=== PATIENT | female | born 1965 | race Caucasian/White ===

== ENCOUNTER 2025-05-24 12:54 | Inpatient (IN) ==
[2025-05-24] MEDS: ASPIRIN CHEW 324 MG PO STA (13:13)
--- NOTE | 2025-05-24 13:13 | Emergency Department Note ---
Impression & Plan Chest pain, Headache ED Provider Note NAME: ANN MARIE ANGELO AGE: 60 SEX: F : 1965 ARRIVES VIA: Walk-In INFORMANT: Patient, ED PROVIDER(S): Celestino Barksdale DO CHIEF COMPLAINT: Chest pain the patient HPI: Is a 60-year-old female who presented to the emergency department for an evaluation. The patient started noticing chest discomfort several weeks ago. She states is very intermittent and sharp. The patient denies having any fever. She denies having a cough. She does notice shortness of breath as well as a discomfort in her shoulder when this occurs. She also notices that she has a headache afterwards and feels drained. The patient has not been seen by her family doctor. The patient denies having any cardiac history. ROS: See above HPI for pertinent positives & negatives. A total of 10 systems reviewed and were otherwise negative. PAST MEDICAL HISTORY: See Below PAST SURGICAL HISTORY: See Below FAMILY HISTORY: See Below SOCIAL HISTORY: See Below HOME MEDICATIONS: See Below ALLERGIES: See Below VITALS: See Below PHYSICAL EXAMINATION: GENERAL: Patient is awake alert in no acute distress patient is resting comfortably and showing no signs of anxiety EYES: The conjunctivae are clear. The pupils are round and reactive. EARS, NOSE, MOUTH AND THROAT: The nose is without any evidence of any deformity. NECK: The neck is nontender and supple. RESPIRATORY: Normal respiratory effort is noted there is no evidence of wheezing rhonchi or rales CARDIOVASCULAR: Regular rate and rhythm noted there no murmurs rubs or gallops normal S1 normal S2. GASTROINTESTINAL: The abdomen is soft. Abdomen is nontender. MUSCULOSKELETAL/EXTREMITIES: There is no evidence of gross deformity full range of motion is noted in the hips and shoulders. SKIN: There is no obvious evidence of any rash. There are no petechiae, pallor or cyanosis noted. NEUROLOGIC: Patient is awake alert and oriented x3 MEDICAL DECISION MAKING: The patient is a 60-year-old female who presented to the emergency department for an evaluation of chest pain. The patient had intermittent episodes of chest pain. This was associated with radiation to the arm but also headache. I discussed the patient's laboratory and radiographic studies with her. I discussed the limitations of the emergency department workup her chest pain with her. Ultimately the patient was found to have serial troponins that were normal. We did calculate a heart score at the bedside. This was between 3 and 4. I did discuss the follow-up with the patient. She is unsure if she would be able to get in with her primary care physician as she is a new patient to him. I am unsure if outpatient follow-up is the right choice with this patient given her ability to follow-up but also her concerns about this being cardiac chest pain. She was not comfortable with outpatient follow-up. For this reason I discussed her condition with the on-call hospitalist group. Triage Nursing notes reviewed. Prior medical records reviewed Vital Signs: reviewed and remarkable for no significant abnormalities Differential diagnosis: Cardiac ischemia, aortic dissection, pulmonary embolism, pneumothorax, pneumonia, pericarditis, myocarditis, esophageal rupture, GERD, cholecystitis, pancreatitis, musculoskeletal, as well as other pathologies. ER treatment provided: See below Diagnostics interpreted by me: ECG: EKG was obtained in the emergency department. My interpretation is normal sinus rhythm at 71 bpm. There is no ectopy. There is no acute ST segment abnormalities noted. This was compared to a tracing from January 07, 2024. No changes were noted. Cardiac Monitoring: An order was placed for continuous cardiac monitoring. The monitor shows a rate of 69 bpm with sinus rhythm. Laboratory studies: As stated above and show below. Imaging studies: See below. Radiographic imaging was reviewed by myself Consultation(s): The [facility] hospitalist was notified about the patient. They will evaluate the patient in the emergency department. Past Med/Surg History Problem List (Updated 05/24/25 @ 17:03 by Celestino Barksdale DO) Headache (Acute) Chest pain (Acute) Social History Smoking Status: Never smoker Preferred Language: Maori Feels Safe at Home: Yes Allergies Allergies Allergy/AdvReac Type Severity Reaction Status Date / Time No Known Allergies Allergy Verified 05/24/25 17:12 Home Meds Home Medications Medication Instructions Recorded Confirmed aspirin 81 mg tablet,delayed 81 mg PO DAILY 05/24/25 05/24/25 release Results & Data (ED) Vital Signs Vital Signs - 24 hr 05/24/25 12:59 05/24/25 13:18 05/24/25 13:18 Temperature 36.7 C Temperature Source Temporal Artery Scan Pulse Rate 81 Pulse Rate [Apical] 79 Pulse Rhythm Pulse Rhythm [Apical] Regular Pulse Strength [Apical] Normal Respiratory Rate 18 12 Respiratory Effort / Characteristics Non-Labored Spontaneous Non-Labored Spontaneous Respiratory Depth Normal Normal Respiratory Pattern Regular Regular Blood Pressure 143/86 H Blood Pressure [Right Arm] 146/97 H Blood Pressure Mean 105 Blood Pressure Mean [Right Arm] 113 Blood Pressure Position [Right Arm] Sitting Pulse Oximetry 96 97 97 Oxygen Delivery Method Room Air Room Air Room Air Sepsis Recent Fever Within 48 Hours No Sepsis New/Unexplained Change in Mental Status N/A Sepsis Action Taken by Nursing No Action Required 05/24/25 13:18 05/24/25 13:24 05/24/25 15:00 Temperature Temperature Source Pulse Rate 74 77 Pulse Rate [Apical] 69 Pulse Rhythm Regular Pulse Rhythm [Apical] Regular Pulse Strength [Apical] Respiratory Rate 14 13 Respiratory Effort / Characteristics Non-Labored Spontaneous Respiratory Depth Normal Respiratory Pattern Regular Blood Pressure Blood Pressure [Right Arm] 133/93 Blood Pressure Mean Blood Pressure Mean [Right Arm] 106 Blood Pressure Position [Right Arm] Semi-fowlers Pulse Oximetry 97 99 Oxygen Delivery Method Room Air Room Air Sepsis Recent Fever Within 48 Hours Sepsis New/Unexplained Change in Mental Status Sepsis Action Taken by [facility] Medications Current Medication List: was personally reviewed by me Laboratory Data Attestation: I reviewed the patient's lab results. 05/24/25 13:15 05/24/25 13:15 Lab Results 05/24/25 05/24/25 Range/Units 13:15 15:35 WBC 6.80 (4.8-10.8) K/ul RBC 4.66 (4.20-5.40) M/uL Hgb 14.7 (12.0-16.0) g/dL Hct 42.6 (37.0-47.0) % MCV 91.4 (80.0-100.0) fL MCH 31.5 (25.0-34.0) pg MCHC 34.5 (32.0-36.0) g/dL RDW Std Deviation 43.1 (36.4-46.3) fL RDW Coeff of Mike 13.0 (11.5-14.5) % Plt Count 215 (130-400) K/uL MPV 10.5 (9.4-12.4) fL Immature Gran % (Auto) 0.1 % Neut % (Auto) 53.8 % Lymph % (Auto) 32.2 % Steele % (Auto) 10.7 % Eos % (Auto) 2.6 % Baso % (Auto) 0.6 % Neut # (Auto) 3.65 (1.40-6.50) K/uL Lymph # (Auto) 2.19 (1.20-3.40) K/uL Steele # (Auto) 0.73 H (0.11-0.59) K/uL Eos # (Auto) 0.18 (0.00-0.50) K/uL Baso # (Auto) 0.04 (0.00-0.20) K/uL Immature Gran # (Auto) 0.01 (0.01-0.20) K/uL PT 10.7 (9.0-12.0) Seconds INR 1.0 (0.9-1.1) APTT 25 (21-31) Seconds PTT Ratio 0.9 D-Dimer 440 (0-500) ug/L FEU Sodium 140 (136-145) mmol/L Potassium 3.9 (3.5-5.1) mmol/L Chloride 107 (98-107) mmol/L Carbon Dioxide 27 (21-32) mmol/L Anion Gap 6 (3-11) BUN 15 (6-23) mg/dl Creatinine 1.05 (0.6-1.2) mg/dl Est Cr Clr Drug Dosing 69.4 ml/min eGFR 60.08 BUN/Creatinine Ratio 14.3 (10-20) Glucose 100 H (70-99(Fasting)) mg/dl Calcium 9.7 (8.6-10.3) mg/dl Total Bilirubin 0.4 (0.2-1.0) mg/dl AST 19 (13-39) U/L ALT 21 (7-52) U/L Alkaline Phosphatase 70 (34-104) U/L Troponin I High Sens 2.6 2.5 (0-14) pg/ml Total Protein 7.6 (6.0-8.3) gm/dl Albumin 4.0 (3.4-5.0) gm/dl Globulin 3.6 (2.5-4.0) gm/dl Albumin/Globulin Ratio 1.1 (0.9-2) Lipase 53 (11-82) U/L Administered Medications Discontinued Medications Aspirin (Aspirin Chew 324 Mg) 324 mg PO NOW STA Stop: 05/24/25 13:08 Last Admin: 05/24/25 13:13 Dose: 324 mg Documented By: JENNIFER Imaging Data Attestation: I personally reviewed and interpreted this imaging study as follows: My Impression: 1 view chest x-ray was obtained in the emergency department. My interpretation is no free air or definite infiltrate, final report below. Radiologist's Impression: Chest X-Ray 05/24/25 13:07 XR chest 1V portable CLINICAL HISTORY: Chest pain, nonspecific COMPARISON STUDY: 01/07/2024 FINDINGS: Heart size and pulmonary vasculature are normal. No consolidation or pleural effusion. No pneumothorax. IMPRESSION: No acute findings. ACT 112: Negative or not required by law. Electronically signed by: Shay Grover M.D. 05/24/2025 1:31 PM Discharge Plan Visit Data Chief Complaint: Cardiac Assessment Stated Complaint: CHEST PAIN SOB ED Provider: Celestino Barksdale Discharge Problem: Chest pain, Headache Patient Disposition: Being Evaluated by Hospitalist Condition: Fair Forms Stand Alone Forms: My [facility] Prescriptions Prescriptions: No Action aspirin 81 mg Tablet,Delayed Release (Dr/Ec) 81 mg PO DAILY Referrals Referrals: Bairon Dukes [Outside Practitioners] -
[2025-05-24 13:30] LABS: Hematocrit (blood only) 42.6 % (37.0-47.0); Hemoglobin 14.7 g/dL (12.0-16.0); Immature Granulocytes # (auto) 0.01 K/uL (0.01-0.20); Immature Granulocytes % (auto) 0.1 %; Mean Corpuscular Hemoglobin 31.5 pg (25.0-34.0); Mean Corpuscular Volume 91.4 fL (80.0-100.0); Platelet Count 215 K/uL (130-400); RDW Standard Deviation 43.1 fL (36.4-46.3); Red Blood Count 4.66 M/uL (4.20-5.40); White Blood Count 6.80 K/ul (4.8-10.8)
--- NOTE | 2025-05-24 13:32 | XRay Report ---
XR chest 1V portable CLINICAL HISTORY: Chest pain, nonspecific COMPARISON STUDY: 01/07/2024 FINDINGS: Heart size and pulmonary vasculature are normal. No consolidation or pleural effusion. No p neumothorax. IMPRESSION: No acute findings. ACT 112: Negative or not required by law. Electronically signed by: Shay Grover M.D. 05/24/2025 1:31 PM
[2025-05-24 13:48] LABS: Alanine Aminotransferase 21.0 U/L (7-52); Albumin Globulin Ratio 1.1 (0.9-2); Albumin Level 4.0 gm/dl (3.4-5.0); Alkaline Phosphatase 70.0 U/L (34-104); Anion Gap 6.0 (3-11); Bilirubin,Total 0.4 mg/dl (0.2-1.0); Blood Urea Nitrogen 15.0 mg/dl (6-23); Calcium 9.7 mg/dl (8.6-10.3); Carbon Dioxide 27.0 mmol/L (21-32); Chloride 107.0 mmol/L (98-107); Creatinine Clr Calc Pharmacy 69.4 ml/min; Globulin 3.6 gm/dl (2.5-4.0); Glucose 100.0 mg/dl (70-99(Fasting)); Lipase 53.0 U/L (11-82); Potassium 3.9 mmol/L (3.5-5.1); Sodium 140.0 mmol/L (136-145); Total Protein 7.6 gm/dl (6.0-8.3)
[2025-05-24 14:04] LABS: INR 1.0 (0.9-1.1); Partial Thromboplastin Time 25 Seconds (21-31); Prothrombin Time 10.7 Seconds (9.0-12.0)
[2025-05-24] MEDS ORDERED: NITROGLYCERIN SL 0.4 MG/TAB TAB SL PRN (17:38)
--- NOTE | 2025-05-24 17:38 | Electrocardiogram Report ---
Test Reason : Blood Pressure : */* mmHG Vent. Rate : 71 BPM Atrial Rate : 71 BPM P-R Int : 138 ms QRS Dur : 80 ms QT Int : 384 ms P-R-T Axes : 66 59 62 degrees QTcB Int : 417 ms Normal sinus rhythm with sinus arrhythmia Normal ECG When compared with ECG of 07-Jan-2024 08:35, Nonspecific T wave abnormality no longer evident in Anterior leads Confirmed by Gabriele Quinones ([id number]) on 05/24/2025 5:37:28 PM Referred By: Confirmed By: Gabriele Quinones
--- NOTE | 2025-05-24 17:52 | History & Physical Report ---
Date of Service May 24, 2025 Assessment & Plan (1) Chest pain: Plan: Chest pain in the precordial area for a while Frequent tach of chest pain recently with and without exertion Strong family history of CAD on the mother side She is a non-smoker and does not drink and has not had a cholesterol checked No evidence of ACS so far Will get serial cardiac enzymes, EKG and also echo Cardiology consult given his strong family history of heart disease Stress echo has been ordered but that can be modified as per the cardiology evaluation (2) Headache: Plan: Also complains to some headache and some dizziness as well Worried about restenosis with a strong family history of stroke Will get carotid ultrasound in the hospital Obesity Will need counseling DVT prophylaxis Subcu heparin CODE STATUS Full code History of Present Illness Chief Complaint: Chest pain Primary Care Provider: Дмитрий Parks She is a 60-year-old obese female without significant past medical history apparently has been complaining of chest pain. Initial chest pain happened to be after exertion about 2 weeks ago. For the last few days she has been having more of chest pain with and without exertion. The pain seems to be in the center of the chest and towards precordium and associated with shortness of breath and also pain radiates to the back and to the left shoulder. The pain last for few minutes and occasionally she also feels dizzy with it. She is a non-smoker and does not take any alcohol. She has a strong family history of heart disease ,Grand Father of heart attack at 49 and most of her maternal side has significant heart issues required pacemaker and also ablation therapy. She has not had a cholesterol checked for some time. In the emergency room she was free from any pain and apparent testing during EKG and cardiac enzymes were unremarkable. Given the strong suspicion for heart disease and strong family history of heart disease she was admitted to medical telemetry unit and she will be evaluated by icing machine operator while in the hospital. She also complains today of dizziness and will get carotid ultrasound to make sure there is no blockage in the carotid arteries. Allergies Allergy/AdvReac Type Severity Reaction Status Date / Time No Known Allergies Allergy Verified 05/24/25 17:12 Home Medications Medication Instructions Recorded Confirmed Type aspirin 81 mg tablet,delayed 81 mg PO DAILY 05/24/25 05/24/25 History release Past Med/Surg History Problem List (Updated 05/24/25 @ 17:03 by Celestino Barksdale DO) Headache (Acute) Chest pain (Acute) Social History Smoking Status: Never smoker Preferred Language: Georgian Feels Safe at Home: Yes Review of Systems Review of Systems: All systems reviewed and are unremarkable except as noted below Physical Exam Physical Exam: Lying in bed without any acute distress Constitutional: well developed, well nourished and + obese; not ill appearing Eyes: PERRL, conjunctivae normal, anicteric sclerae ENMT: external ear and nose normal, oropharynx normal Neck: trachea midline, no thyromegaly Respiratory: no respiratory distress Auscultation: lungs clear to auscultation bilaterally Cardiovascular: Rate/Rhythm: regular rate and regular rhythm; not tachycardic Heart Sounds: normal S1 and normal S2; no murmur Extremities: no edema Gastrointestinal (Abdomen): Inspection/Auscultation: normal bowel sounds; abdomen not distended Percussion/Palpation: abdomen soft; abdomen nontender Musculoskeletal: No acute arthritis involving any of the joint Neurologic: normal touch/pain/proprioception and moves all extremities; no focal motor deficits Psychiatric: A+Ox3, euthymic affect Lymphatic: no cervical or axillary lymphadenopathy Results & Data Results & Data Vital Signs (Past 12 Hours) Vital Signs Temp Pulse Pulse Resp BP BP Pulse Ox 05/24/25 17:21 79 05/24/25 15:00 69 13 133/93 99 05/24/25 13:24 77 05/24/25 13:18 74 14 97 05/24/25 13:18 79 12 146/97 H 97 05/24/25 13:18 97 05/24/25 12:59 36.7 C 81 18 143/86 H 96 O2 Del Method 05/24/25 17:21 05/24/25 15:00 Room Air 05/24/25 13:24 05/24/25 13:18 Room Air 05/24/25 13:18 Room Air 05/24/25 13:18 Room Air 05/24/25 12:59 Room Air Laboratory Results Short CBC 05/24/25 Range/Units 13:15 WBC 6.80 (4.8-10.8) K/ul Hgb 14.7 (12.0-16.0) g/dL Hct 42.6 (37.0-47.0) % Plt Count 215 (130-400) K/uL BMP 05/24/25 13:15 Sodium 140 Potassium 3.9 Chloride 107 Carbon Dioxide 27 BUN 15 Creatinine 1.05 Glucose 100 H Calcium 9.7 Liver Function 05/24/25 Range/Units 13:15 Total Bilirubin 0.4 (0.2-1.0) mg/dl AST 19 (13-39) U/L ALT 21 (7-52) U/L Alkaline Phosphatase 70 (34-104) U/L Albumin 4.0 (3.4-5.0) gm/dl Medications Administered Current Inpatient Medications Heparin Sodium (Porcine) (Heparin Sod 5,000 Unit/0.5 Ml Vial) 5,000 units SQ Q12 UGO Stop: 06/23/25 20:59 Nitroglycerin (Nitroglycerin Sl 0.4 Mg/Tab Tab) 0.4 mg SL Q5M PRN PRN Reason: Chest Pain Stop: 06/23/25 17:37 Pantoprazole Sodium (Pantoprazole 40 Mg Tab) 40 mg PO QAM UGO Stop: 06/23/25 17:44
--- NOTE | 2025-05-24 20:41 | Ultrasound Report ---
Exam(s): US CAROTID EXAM: US Duplex Bilateral Extracranial Arteries CLINICAL HISTORY: R/O Stenosis. TECHNIQUE: Real-time duplex ultrasound scan of the extracranial arteries integrating B-mode two-dimensional vascular structure, Doppler spectral analysis and color flow Doppler imaging. COMPARISON: No relevant prior studies available. FINDINGS: Right common carotid artery: No occlusion or significant stenosis on color flow and spectral Doppler imaging. Peak systolic velocity in the right common carotid artery (CCA) is 93 cm/s. Right internal carotid artery: No occlusion or significant stenosis on color flow and spectral Doppler imaging. Peak systolic velocity in the right internal carotid artery (ICA) is 79 cm/s. Right external carotid artery: No occlusion or significant stenosis on color flow and spectral Doppler imaging. Peak systolic velocity in the right external carotid artery (ECA) is 109 cm/s. Right vertebral artery: Peak systolic velocity in the right vertebral artery is 50 cm/s. Antegrade flow. Right ICA/CCA ratio: The ICA/CCA peak systolic velocity ratio is 0.85 on the right. Left common carotid artery: No occlusion or significant stenosis on color flow and spectral Doppler imaging. Peak systolic velocity in the left common carotid artery (CCA) is 116 cm/s. Left internal carotid artery: No occlusion or significant stenosis on color flow and spectral Doppler imaging. Peak systolic velocity in the left internal carotid artery (ICA) is 82 cm/s. Left external carotid artery: No occlusion or significant stenosis on color flow and spectral Doppler imaging. Peak systolic velocity in the left external carotid artery (ECA) is 94 cm/s. Left vertebral artery: Peak systolic velocity in the left vertebral artery is 60 cm/s. Antegrade flow. Left ICA/CCA ratio: The ICA/CCA peak systolic velocity ratio is 0.71 on the left. Lymph nodes: No lymphadenopathy. CAROTID STENOSIS REFERENCE USING IAC CRITERIA: Mild - <50% stenosis. ICA PSV is less than 180 cm/s and plaque or intimal thickening is visible. Moderate - 50-69% stenosis. ICA PSV is 180 to 230 cm/s and plaque is visible. Severe - 70-94% stenosis. ICA PSV is more than 230 cm/s and visible plaque with lumen narrowing is seen. Near occlusion - 95-99% stenosis. ICA PSV is variable and significant plaque with luminal narrowing is seen. Occluded - 100% stenosis. No flow identified. IMPRESSION: No arterial occlusion or duplex evidence for significant hemodynamic stenosis involving the bilateral carotid and bilateral vertebral arteries. Electronically signed by: Lucas Oliveira MD 05/24/25 20:40 PM
[2025-05-24] MEDS: HEPARIN SOD 5,000 UNIT/0.5 ML VIAL SQ SCH (22:01)
[2025-05-25 03:40] VITALS: RESP 16
[2025-05-25 03:55] LABS: Hematocrit (blood only) 41.1 % (37.0-47.0); Hemoglobin 14.1 g/dL (12.0-16.0); Immature Granulocytes # (auto) 0.01 K/uL (0.01-0.20); Immature Granulocytes % (auto) 0.2 %; Mean Corpuscular Hemoglobin 31.4 pg (25.0-34.0); Mean Corpuscular Volume 91.5 fL (80.0-100.0); Platelet Count 195 K/uL (130-400); RDW Standard Deviation 43.7 fL (36.4-46.3); Red Blood Count 4.49 M/uL (4.20-5.40); White Blood Count 6.25 K/ul (4.8-10.8)
[2025-05-25 04:11] LABS: Anion Gap 8.0 (3-11); Blood Urea Nitrogen 18.0 mg/dl (6-23); Calcium 9.0 mg/dl (8.6-10.3); Carbon Dioxide 24.0 mmol/L (21-32); Chloride 106.0 mmol/L (98-107); Cholesterol 211.0 mg/dl (0-200); Creatinine Clr Calc Pharmacy 73.3 ml/min; Glucose 103.0 mg/dl (70-99(Fasting)); HDL Cholesterol 36.0 mg/dl; Magnesium 2.1 mg/dl (1.7-2.4); Potassium 4.0 mmol/L (3.5-5.1); Sodium 138.0 mmol/L (136-145); Triglycerides 254.0 mg/dl (0-150)
[2025-05-25] MEDS: ASPIRIN 81 MG ECTAB PO SCH (08:02)
--- NOTE | 2025-05-25 08:44 | Cardiology Consultation ---
Date of Consultation May 25, 2025 Assessment & Plan (1) Chest pain: (2) Dyslipidemia: Plan Assessment: 60 year old female with no prior stated medical history presents with chest pain, dyspnea and lightheadedness. EKG with no acute changes. Troponin negative x3. Telemetry SR with a 6 beat run of non-sustained VT Plan: 1. Chest pain -Patient presents with multiple episodes of chest pain with associated dyspnea and lightheadedness. -EKG with no acute changes -Telemetry SR with a single 6 beat run of Nonsustained VT with no recurrence. ? sleep apnea component. Rare PVC's -NPO for stress echocardiogram. Will await results. -Continue ASA 81mg -If no acute findings on stress echo, would recommend that patient have OP protracted cardiac monitoring with a 14 day zio 2. Dyslipidemia: -Elevated Triglycerides and LDL -Would recommend initiating statin therapy, likely Crestor. Will await stress test results. Case has been discussed with Dr. Ji. Further recommendations regarding plan of care as per his assessment. I spent a total of 50 minutes on the date of service in preparation, delivery, documentation of the care provided to the patient excluding any time spent in the performance of separately billed services. STEPHON Smith [facility] Cardiology [facility] Supervising Physician Co-Signing Physician Notes Patient seen and examined. Past medical history, surgical history, social history and family history have been reviewed. The medical record and all the above studies have been reviewed. Case DW JARON including management. Chest Pain - MO R/O, atypical Obesity HLD 05/25/25 Interpretation Summary STRESS STUDY: Normal exercise stress echocardiogram. No echocardiographic or ECG evidence of myocardial ischemia having achieved heart rate adequate for diagnostic purposes. Left ventricular systolic function is normal. Left Ventricular Ejection Fraction = 60-65%. Grade I diastolic dysfunction, (abnormal relaxation pattern). Mild pulmonic valvular regurgitation. start Crestor 10 mg po daily stable from cardiac standpoint for discharge f/u as OP History of Present Illness Reason for Consultation: chest pain Requesting Physician: [facility] hospitalist Attending Physician: Savage Pimentel MD History of Present Illness HPI: patient is a 60 year old female with no significant PMHx that presented to the ER with intermittent episodes of chest pain with exertion over the past 2 weeks. She has noticed an increase in episodes over the past few days now noting with and without exertion. Describes the pain as central/mid-sternal sharp and radiates to her back and left shoulder with associated shortness of breath. Endorses rare dizziness with it. Patient notes no prior cardiac history for he rself, but premature CAD in her family. EKG NSR/Sinus arrhythmia Rate 71bpm QTC 417ms Troponin negative x4 Chest x-ray negative Carotid duplex Negative Cholesterol panel markedly abnormal Telemetry shows SR rates 70-80's occasional PVC's. There is notation of a 6 beat run of Non-sustained VT at 10pm, but nothing further. patient is chest pain free at time of exam. She has been NPO in anticipation of a stress echocardiogram. Family history of CAD, but more notable a significant history of arrhythmia issues with "all the women" in her family. She is unsure what the rhythm is, but knows that her mother had 2 ablations. Allergies Allergy/AdvReac Type Severity Reaction Status Date / Time No Known Allergies Allergy Verified 05/24/25 17:12 Home Medications Medication Instructions Recorded Confirmed Type aspirin 81 mg tablet,delayed 81 mg PO DAILY 05/24/25 05/24/25 History release atorvastatin 10 mg tablet (Lipitor) 10 mg PO DAILY #30 tabs 05/25/25 Rx magnesium oxide 400 mg PO DAILY #30 tabs 05/25/25 Rx pantoprazole 40 mg tablet,delayed 40 mg PO QAM #14 tabs 05/25/25 Rx release Patient History Social History Smoking Status: Never smoker Hx Alcohol Use: No Hx Substance Use: No Preferred Language: Italian Communication Ability: Effective 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 Beliefs That Will Affect Care: None Current Living Situation: Spouse Feels Safe at Home: Yes Safety Concerns: Feels Safe At This Time Assistive Devices: Glasses Review of Systems Review of Systems: All systems reviewed & are unremarkable except as noted in HPI & below Physical Exam Constitutional: well developed, well nourished and + overweight Neck: normal visual inspection and trachea midline Cardiovascular: RRR, no murmur, no edema Heart Sounds: no murmur Vessels: dorsalis pedis pulses present; no JVD Skin: no rashes, warm and dry Psychiatric: A+Ox3, euthymic affect Results & Data Vital Signs (Past 12 Hours) Vital Signs Temp Pulse Pulse Resp BP BP Pulse Ox 05/25/25 08:07 36.6 C 78 16 124/81 93 05/25/25 05:33 60 05/25/25 03:39 36.6 C 66 16 118/67 95 05/24/25 21:46 63 05/24/25 21:30 36.7 C 66 18 143/82 H 96 05/24/25 21:05 05/24/25 20:44 73 12 128/83 97 O2 Del Method 05/25/25 08:07 Room Air 05/25/25 05:33 05/25/25 03:39 Room Air 05/24/25 21:46 05/24/25 21:30 Room Air 05/24/25 21:05 Room Air 05/24/25 20:44 Room Air Laboratory Results Cardiac Enzymes 05/24/25 05/24/25 05/24/25 Range/Units 13:15 15:35 23:42 AST 19 (13-39) U/L Troponin I High Sens 2.6 2.5 3.0 (0-14) pg/ml 05/25/25 Range/Units 03:28 AST (13-39) U/L Troponin I High Sens 3.2 (0-14) pg/ml Coagulation 05/24/25 Range/Units 13:15 PT 10.7 (9.0-12.0) Seconds APTT 25 (21-31) Seconds Lipids 05/25/25 Range/Units 03:28 Triglycerides 254 H (0-150) mg/dl Cholesterol 211 H (0-200) mg/dl HDL Cholesterol 36 mg/dl Cholesterol/HDL Ratio 5.9 H (0-5) CBC 05/24/25 05/25/25 Range/Units 13:15 03:28 WBC 6.80 6.25 (4.8-10.8) K/ul RBC 4.66 4.49 (4.20-5.40) M/uL Hgb 14.7 14.1 (12.0-16.0) g/dL Hct 42.6 41.1 (37.0-47.0) % Plt Count 215 195 (130-400) K/uL Neut # (Auto) 3.65 3.01 (1.40-6.50) K/uL Lymph # (Auto) 2.19 2.48 (1.20-3.40) K/uL [place] # (Auto) 0.73 H 0.54 (0.11-0.59) K/uL Eos # (Auto) 0.18 0.18 (0.00-0.50) K/uL Baso # (Auto) 0.04 0.03 (0.00-0.20) K/uL Comprehensive Metabolic Panel 05/24/25 05/25/25 Range/Units 13:15 03:28 Sodium 140 138 (136-145) mmol/L Potassium 3.9 4.0 (3.5-5.1) mmol/L Chloride 107 106 (98-107) mmol/L Carbon Dioxide 27 24 (21-32) mmol/L BUN 15 18 (6-23) mg/dl Creatinine 1.05 1.00 (0.6-1.2) mg/dl Glucose 100 H 103 H (70-99(Fasting)) mg/dl Calcium 9.7 9.0 (8.6-10.3) mg/dl AST 19 (13-39) U/L ALT 21 (7-52) U/L Alkaline Phosphatase 70 (34-104) U/L Total Protein 7.6 (6.0-8.3) gm/dl Albumin 4.0 (3.4-5.0) gm/dl Intake and Output 05/24/25 05/25/25 05/25/25 22:59 06:59 14:59 Other: Weight 113.4 kg Weight Measurement Method Standing Scale PG Care Time/CCT Total # of Minutes Spent Total Time Spent with Patient: Total time spent is greater than 50% in coordination of care (as documented) at patient's floor/unit and/or counseling patient: Coding Level of Care Code 41315 IN/OBS CONSULT LVL 5,80M Diagnoses Chest pain R07.9 Dyslipidemia E78.5 Time Spent (min) 50
[2025-05-25 11:37] VITALS: TEMP 98.4
--- NOTE | 2025-05-25 13:22 | XCELERA ---
[id number]
--- NOTE | 2025-05-25 13:34 | Discharge Summary ---
Date of Service May 25, 2025 Admission HPI Per Admitting Provider She is a 60-year-old obese female without significant past medical history apparently has been complaining of chest pain. Initial chest pain happened to be after exertion about 2 weeks ago. For the last few days she has been having more of chest pain with and without exertion. The pain seems to be in the center of the chest and towards precordium and associated with shortness of breath and also pain radiates to the back and to the left shoulder. The pain last for few minutes and occasionally she also feels dizzy with it. She is a non-smoker and does not take any alcohol. She has a strong family history of heart disease ,Grand Father of heart attack at 49 and most of her maternal side has significant heart issues required pacemaker and also ablation therapy. She has not had a cholesterol checked for some time. In the emergency room she was free from any pain and apparent testing during EKG and cardiac enzymes were unremarkable. Given the strong suspicion for heart disease and strong family history of heart disease she was admitted to medical telemetry unit and she will be evaluated by manager patient while in the hospital. She also complains today of dizziness and will get carotid ultrasound to make sure there is no blockage in the carotid arteries. Admission Exam Per Admitting Provider Physical Exam: Lying in bed without any acute distress Constitutional: well developed, well nourished and + obese; not ill appearing Eyes: PERRL, conjunctivae normal, anicteric sclerae ENMT: external ear and nose normal, oropharynx normal Neck: trachea midline, no thyromegaly Respiratory: no respiratory distress Auscultation: lungs clear to auscultation bilaterally Cardiovascular: Rate/Rhythm: regular rate and regular rhythm; not tachycardic Heart Sounds: normal S1 and normal S2; no murmur Extremities: no edema Gastrointestinal (Abdomen): Inspection/Auscultation: normal bowel sounds; a bdomen not distended Percussion/Palpation: abdomen soft; abdomen nontender Musculoskeletal: No acute arthritis involving any of the joint Neurologic: normal touch/pain/proprioception and moves all extremities; no focal motor deficits Psychiatric: A+Ox3, euthymic affect Lymphatic: no cervical or axillary lymphadenopathy Principal Diagnosis Chest pain, ACS ruled out Discharge Exam Constitutional: WD/WN, vitals as above, NAD, sitting up in bed, pleasant, conversing easily Respiratory: normal respiratory effort, lungs clear to auscultation, no wheeze, rales, rhonchi. Normal insp/exp effort, no accessory muscle use Cardiovascular: RRR, no murmur, no edema Vessels: no JVD or carotid bruit Chest: normal inspection of chest Abdomen: normal bowel sounds, soft, nontender, no hepatosplenomegaly Musculoskeletal: no cyanosis or clubbing, extremities motor strength 5/5 Skin: no rashes, warm and dry normal turgor Neurologic: PERRL, EOMI, accommodation nl, no face palsy, no dysarthria CN's II- XI intact bilaterally and moves all extremities Psychiatric: A+Ox3, euthymic affect Discharge Data Allergies Allergy/AdvReac Type Severity Reaction Status Date / Time No Known Allergies Allergy Verified 05/24/25 17:12 Consultations 05/24/25 17:14 ED Decision to Admit Stat 05/24/25 17:32 Consult Cardiology Routine Ordered Studies 05/24/25 17:32 US carotid doppler BI Routine Hospital Course (1) Chest pain: (2) Headache: Plan Chest pain in the precordial area for a while Frequent tach of chest pain recently with and without exertion Strong family history of CAD on the mother side Patient was admitted to telemetry floor. Serial high sensitive troponin were negative. Patient underwent stress echocardiogram which showed normal EF of 60 to 65%; grade 1 diastolic dysfunction. No echocardiographic or EKG evidence of myocardial ischemia. Patient was found to have high triglyceride level of 254 mg per DL and LDL of 211 mg per DL. She was started on Lipitor 10 mg once a day; discussion was done regarding lifestyle modification. A trial of Protonix 40 mg once a day was also prescribed for chest discomfort. Patient to follow-up with primary care doctor and obtain Zio patch monitoring as outpatient. I also discussed possibly anxiety contributing to chest discomfort/headache; I encouraged her to discuss this with her primary care doctor. Please note the above document was generated using voice recognition software. It may contain grammatical, syntax or spelling errors. Any formal questions or concerns about the content, text or information contained within the body of this dictation should be directly addressed to the provider for clarification Total Time Total Time Spent Total Time Spent (In Minutes): 45 Total Time Includes: Examination of the Patient, Discharge Planning, Medication Reconciliation, Communication With Other Providers and Other Discharge Plan Discharge Items Patient Disposition: Home - Self-Care Reason For Visit: CHEST PAIN Discharge Diagnosis: Chest pain, ACS ruled out Condition on Discharge: Fair Activity: Resume your previous activity Non-emergency contact: Primary Care Provider Call non-emergency contact if: you have any medication questions and your symptoms worsen Follow-up/Referrals: Дмитрий Parks [Primary Care Provider] - Diet: Regular Addtl Attending Provider Instructions: You were admitted to the hospital due to chest pain. You were evaluated by cardiology and underwent a stress test. You are prescribed Lipitor(cholesterol medication) 10 mg to be taken once a day. You have been also prescribed trial of Protonix 40 mg once a day for next 14 days to see if it will have any effect with the left-sided discomfort. You have also been prescribed magnesium supplement. One of the effects of magnesium is increased bowel movements. Please stop the magnesium tablet if you experience diarrhea. An appointment will be set up with your primary care doctor for follow-up. Please discuss regarding Zio patch monitoring as well as further evaluation if you continue to have left-sided chest discomfort Pending Studies at Discharge: No Stand-Alone Forms: My [facility] [employer], Smoking Cessation Medications and DC Order Prescriptions: New pantoprazole 40 mg Tablet,Delayed Release (Dr/Ec) 40 mg PO QAM Qty: 14 0RF atorvastatin [Lipitor] 10 mg tablet 10 mg PO DAILY Qty: 30 0RF magnesium oxide 400 mg magnesium tablet 400 mg PO DAILY Qty: 30 0RF Continued aspirin 81 mg Tablet,Delayed Release (Dr/Ec) 81 mg PO DAILY Discharge Orders: Discharge Order (Routine); Ordered 05/25/25 Ordered By: Savage Pimentel Admission Data Admit Date/Time: 05/24/25 18:37 Attending Provider: Savage Pimentel Admit Provider: Pretty Tran Primary Care Provider: Дмитрий Parks Other Providers: Pretty Tran; Rajwinder Sal; Sandro Matos; Skuh Garcia; Jamil Crump; Tyrone Juarez; Geo Snyder; Muna Betts; Meli Woodson; Mabel Jonse; Hemalatha Chawla; Rajwinder Ca; Andres Lopez; Guero Yu; Rachel Gillis; Baylee Miranda; Liudmila Hughes; Mohinder Banegas; Bairon Woodard; Patty Garcia; Kimberly Ordoñez; Rodolfo Shaw; Darrian Ji
[2025-05-25 15:31] VITALS: BP 128/66; PULSE 85; O2SAT 98
== END 2025-05-25 15:55 | disposition home or self-care (01) | DRG 313 ==
LOC: ED 12:54 → 2N 18:37 → SUATTDRO 18:37 → 2N 21:05